=== PATIENT | female | born 1980 | race African-American/Black ===

== ENCOUNTER 2020-12-02 10:54 | Emergency (ER) | payer BC, OTHER ==
[2020-12-02] MEDS ORDERED: Dexamethasone 4 MG TAB ONE (12:21)
== END 2020-12-02 12:27 | disposition home or self-care (01) ==
LOC: MADERS 10:54
DX: J02.9 Acute pharyngitis, unspecified (principal)
CPT/HCPCS: 87081; 87430; 99283; J8540